=== PATIENT | male | born 1965 | race Caucasian/White ===

== ENCOUNTER → 2016-12-24 | Outpatient (CLI) | payer OTHER ==
[~2016-12-24] MED LIST: B-COTAB41 PO; CARI350T19 PO; GEMF600T PO; GLUC500C3 PO; IBUP800T23 PO; LISI10TA PO; LORT7.5T3 PO; METF-324 PO; METO50TA PO; MULT-65 PO; OMEGCAP21 PO; TIZA4CAP PO
[2016-12-24 07:28] LABS: ALKALINE PHOSPHATASE 62 U/L (45-117); ALT (GPT) 27 U/L (12-78); ANION GAP 10 MEQ/L (5-15); AST (GOT) 16 U/L (15-37); BICARBONATE 29.9 MEQ/L (21.0-32.0); BLOOD UREA NITROGEN 26 MG/DL (7-18); CHLORIDE 101 MEQ/L (98-107); GLOMERULAR FILTRATION RATE 67 ML/MIN (>89); GLUCOSE,FASTING 134 MG/DL (74-99); HDL CHOLESTEROL 27.6 MG/DL (40.0-60.0); LDL CHOLESTEROL 78 MG/DL (0-99); POTASSIUM 3.9 MEQ/L (3.5-5.1); SODIUM (NA) 141 MEQ/L (136-145); TOTAL BILIRUBIN ADULT 0.5 MG/DL (0.2-1.0); URIC ACID 8.1 MG/DL (2.6-7.2)
== END ==
LOC: CLAB 06:29
PROVIDERS: ATTEND Family Medicine
DX: E78.2 Mixed hyperlipidemia (principal); M10.9 Gout, unspecified; E29.1 Testicular hypofunction
CPT/HCPCS: 36415; 80053; 80061; 84403; 84550

== ENCOUNTER → 2017-02-19 | Outpatient (CLI) | payer OTHER ==
[~2017-02-19] VITALS: Ht 170.2 cm; Wt 92.4 kg
[~2017-02-19] MED LIST changes: -B-COTAB41 PO; -CARI350T19 PO; +CARI350T25 PO; +CHLORHEXIDINE GLUCONATE 2 % 1 PACK (2 CLOTHS) TOPICAL PRN; +GABA600T PO; +GLIP10TA6 PO; -GLUC500C3 PO; +HYDR-3580 PO; -IBUP800T23 PO; +INSULIN HUMAN REGULAR 1,000 UNITS/10 ML VIAL SQ PRN; +LACTATED RINGER'S 1000 ML IV PRN; -LISI10TA PO; +LISI20TA PO; -LORT7.5T3 PO; +MELO-1 PO; -METF-324 PO; +METF-382 PO; +METOPROLOL TARTRATE 25 MG TAB PO PRN; -MULT-65 PO; -OMEGCAP21 PO; +POVIDONE IODINE 5% (ANTISEPSIS KIT) 4 APPLICATIONS EACH NARE PRN; +PROPOFOL 200 MG/20 ML AMP IV ONE; +SAW450CA2 PO; +SODIUM CHLORID 0.9% 500 ML IV PRN; +TEST1INJ3 IM; -TIZA4CAP PO
[2017-02-19 12:12] VITALS: BP 131/81; PULSE 65; RESP 20; TEMP 98.2; O2SAT 95
[2017-02-19 14:05] VITALS: BP 107/61; PULSE 60; RESP 20; TEMP 96.6; O2SAT 98
--- NOTE | 2017-02-19 21:47 | MR ---
cc: AGUS PHOENIX M.D., JOHN T. M.D. DATE: 02/19/2017. PREOPERATIVE DIAGNOSIS: Screening colonoscopy. POSTOPERATIVE DIAGNOSIS: Normal colonoscopy. PROCEDURE: Total colonoscopy. ANESTHESIA: Monitored anesthesia care SURGEON: Ari Chavez M.D. OPERATIVE FINDINGS: This patient was referred to me for a screening colonoscopy. At colonoscopy, no polyps or other mucosal lesions were seen. The prep was fair to good. There was some particulate matter around and a little bit of cloudy liquid but a fairly good look was obtained. OPERATIVE TECHNIQUE: The patient was placed on the table in the lithotomy position and given monitored anesthesia care and the colonoscope was introduced through the anal canal and taken the rectum, sigmoid colon, descending colon, transverse colon and ascending colon to the cecum. The ileocecal valve was seen as was the base of the appendix. The scope was sequentially withdrawn sequentially looking at the mucosa and getting a fairly good look at the mucosa. No polyps or other mucosal lesions were seen. He should have a repeat colonoscopy in 10 years time unless he has symptoms prior to then. MD DANETTE Salinas/ARIELA /2:05 PM /9:47 PM
--- NOTE | 2017-02-20 10:38 | EKG ---
Date Performed: 02/19/2017 Time Performed: 11:38:48 PTAGE: 51 years EKG: Sinus rhythm NONSPECIFIC T-WAVE ABNORMALITY ABNORMAL ECG NO PREVIOUS TRACING DOCTOR: Dontae Downs Interpretating Date/Time 02/20/2017 10:35:56
== END ==
LOC: HEND 11:17
PROVIDERS: ATTEND Colon & Rectal Surgery
DX: Z12.11 Encounter for screening for malignant neoplasm of colon (principal); R94.31 Abnormal electrocardiogram [ECG] [EKG]
CPT/HCPCS: 93005

== ENCOUNTER → 2017-06-02 | Outpatient (CLI) | payer OTHER ==
[~2017-06-02] MED LIST changes: -CHLORHEXIDINE GLUCONATE 2 % 1 PACK (2 CLOTHS) TOPICAL PRN; -INSULIN HUMAN REGULAR 1,000 UNITS/10 ML VIAL SQ PRN; -LACTATED RINGER'S 1000 ML IV PRN; -METOPROLOL TARTRATE 25 MG TAB PO PRN; -POVIDONE IODINE 5% (ANTISEPSIS KIT) 4 APPLICATIONS EACH NARE PRN; -PROPOFOL 200 MG/20 ML AMP IV ONE; -SODIUM CHLORID 0.9% 500 ML IV PRN
[2017-06-02 08:17] LABS: ALBUMIN 3.8 GM/DL (3.4-5.0); ALT (GPT) 26 U/L (12-78); AST (GOT) 16 U/L (15-37); BICARBONATE 28.2 MEQ/L (21.0-32.0); BLOOD UREA NITROGEN 21 MG/DL (7-18); CALCIUM 8.4 MG/DL (8.5-10.1); CHLORIDE 106 MEQ/L (98-107); CREATININE 1.16 MG/DL (0.60-1.30); GLOMERULAR FILTRATION RATE 66 ML/MIN (>89); GLUCOSE,FASTING 174 MG/DL (74-99); SODIUM (NA) 141 MEQ/L (136-145)
[2017-06-02 08:20] LABS: ALKALINE PHOSPHATASE 64 U/L (45-117); TOTAL BILIRUBIN ADULT 0.3 MG/DL (0.2-1.0); TOTAL PROTEIN 6.8 GM/DL (6.4-8.2)
== END ==
LOC: CLAB 06:39
PROVIDERS: ATTEND Family Medicine
DX: E78.2 Mixed hyperlipidemia (principal); M10.9 Gout, unspecified; E29.1 Testicular hypofunction
CPT/HCPCS: 36415; 80053; 84403; 84550

== ENCOUNTER → 2017-06-16 | Outpatient (CLI) | payer OTHER ==
[~2017-06-16] MED LIST changes: -MELO-1 PO; +MELO15TA20 PO
[2017-06-16 15:22] LABS: ANION GAP 8 MEQ/L (5-15); AST (GOT) 17 U/L (15-37); BICARBONATE 26.5 MEQ/L (21.0-32.0); BLOOD UREA NITROGEN 23 MG/DL (7-18); CHLORIDE 104 MEQ/L (98-107); GLOMERULAR FILTRATION RATE 73 ML/MIN (>89); GLUCOSE,FASTING 163 MG/DL (74-99); POTASSIUM 3.9 MEQ/L (3.5-5.1); SODIUM (NA) 138 MEQ/L (136-145)
[2017-06-16 15:24] LABS: RHEUMATOID FACTOR TRIGGER 30.1 IU/ML (0.0-14.9)
[2017-06-16 15:27] LABS: ALKALINE PHOSPHATASE 68 U/L (45-117); ALT (GPT) 32 U/L (12-78); TOTAL BILIRUBIN ADULT 0.2 MG/DL (0.2-1.0)
== END ==
LOC: CLAB 14:16
PROVIDERS: ATTEND Internal Medicine Rheumatology
DX: M06.4 Inflammatory polyarthropathy (principal)
CPT/HCPCS: 36415; 80053; 85652; 86140; 86200; 86430